=== PATIENT | female | born 1970 | race Caucasian/White ===

== ENCOUNTER 2023-01-05 08:12 | Emergency (ER) | payer MEDICARE, OTHER ==
[~2023-01-05] VITALS: Ht 172.7 cm; Wt 79.5 kg
[2023-01-05 08:26] VITALS: BP 142/96; PULSE 95; RESP 20; TEMP 97.7; O2SAT 98
[2023-01-05] MEDS ORDERED: ondansetron/PF 4mg/2ml inj IV ONE (10:15)
[2023-01-05] MEDS ORDERED: famotidine/PF 10 mg/ml inj IV ONE (10:15)
[2023-01-05] MEDS ORDERED: morphine 4 MG/ML inj SYRINge IV ONE (10:15)
[2023-01-05] MEDS ORDERED: normal saline 1000ML IV soln IVB ONE (10:15)
[2023-01-05 10:17] LABS: BASOPHILS # (AUTO) 0.1 X10'3 (0-0.2); BASOPHILS % (AUTO) 0.6 % (0-1); EOSINOPHILS # (AUTO) 0.2 X10'3 (0-0.9); HEMATOCRIT 41.9 % (35.0-45.0); HEMOGLOBIN 13.9 g/dl (12.0-16.0); LYMPHOCYTES # (AUTO) 2.8 X10'3 (1.1-4.8); LYMPHOCYTES % (AUTO) 18.1 % (21-51); MEAN CORPUSCULAR HEMOGLOBIN 30.3 PG (27.0-31.0); MEAN CORPUSCULAR HGB CONC 33.3 g/dL (33.0-36.5); MEAN CORPUSCULAR VOLUME 91.1 FL (78-98); MEAN PLATELET VOLUME 6.1 FL (7.4-10.4); MONOCYTES # (AUTO) 1.2 X10'3 (0-0.9); MONOCYTES % (AUTO) 7.4 % (2-12); NEUTROPHILS # (AUTO) 11.5 X10'3 (1.8-7.7); NEUTROPHILS % (AUTO) 72.9 % (42-75); PLATELET COUNT 558 X10'3 (140-440); RED CELL DISTRIBUTION WIDTH 13.5 % (11.5-14.5); WHITE BLOOD COUNT 15.8 X10'3 (4.5-11.0)
[2023-01-05 10:35] LABS: ALANINE AMINOTRANSFERASE 23 U/L (12-78); ALBUMIN 3.5 G/DL (3.4-5.0); ALBUMIN/GLOBULIN RATIO 0.9 (1.1-1.5); ALKALINE PHOSPHATASE 91 IU/L (46-116); ANION GAP 12 (8-16); ASPARTATE AMINO TRANSFERASE 16 U/L (10-37); BILIRUBIN,TOTAL 0.7 MG/DL (0.1-1.0); BLOOD UREA NITROGEN 11 MG/DL (7-18); BUN/CREATININE RATIO 10.5 (10.0-20.0); CALCIUM 9.3 MG/DL (8.5-10.1); CHLORIDE 104 MMOL/L (99-107); CREATININE 1.05 MG/DL (0.40-0.90); GLUCOSE 111 MG/DL (70-104); LIPASE < 50 U/L (73-393); POTASSIUM 3.6 MMOL/L (3.5-5.1); SODIUM 143 MMOL/L (135-145); TOTAL CARBON DIOXIDE 27.2 MMOL/L (24-32); TOTAL PROTEIN 7.4 G/DL (6.4-8.2); eCRCL 62 ML/MIN; eGFR 55 ML/MIN
[2023-01-05] MEDS ORDERED: iohexol 300mg/ml 100ml inj. ONE (10:46)
[2023-01-05 12:05] LABS: APTT 29 SECONDS (22-32); PROTHROMBIN TIME 10.3 SECONDS (9.0-12.0)
[2023-01-05 12:36] LABS: FREE T4 (FREE THYROXINE) 0.81 NG/DL (0.73-1.40); MAGNESIUM 1.9 MG/DL (1.5-2.4); THYROID STIMULATING HORMONE 0.81 ulU/ml (0.34-4.50)
[2023-01-05] MEDS ORDERED: levoFLOXACIN 250mg tablet PO ONE (14:55)
[2023-01-05] MEDS ORDERED: metroNIDAZOLE 500mg tablet PO ONE (14:55)
[2023-01-05] MEDS ORDERED: LEVO750T68 PO (15:32)
[2023-01-05] MEDS ORDERED: METR-159 PO (15:32)
[2023-01-05] MEDS ORDERED: ONDA4TAB12 PO (15:32)
[2023-01-05] MEDS ORDERED: NAPR-56 PO (15:32)
== END 2023-01-05 16:05 | disposition home or self-care (01) ==
LOC: ER 08:13
DX: I10 Essential (primary) hypertension (principal); E66.9 Obesity, unspecified; K57.32 Diverticulitis of large intestine without perforation or abscess without bleeding; E78.00 Pure hypercholesterolemia, unspecified; F17.200 Nicotine dependence, unspecified, uncomplicated; F12.90 Cannabis use, unspecified, uncomplicated; R10.32 Left lower quadrant pain; Z88.8 Allergy status to other drugs, medicaments and biological substances; Z88.5 Allergy status to narcotic agent; Z90.49 Acquired absence of other specified parts of digestive tract; Z98.51 Tubal ligation status
CPT/HCPCS: 36415; 71045; 74177; 80053; 83690; 83735; 84439; 84443; 84484; 85025; 85610; 85730; 99284; Q9967; 99285